=== PATIENT | female | born 1965 ===

== ENCOUNTER 2016-10-06 12:03 | Emergency (ER) | payer OTHER ==
--- NOTE | 2016-10-06 12:40 | ED PDOC ---
Lower Extremity Pain/Injury Time Seen by Provider: 10/06/16 12:33 Chief Complaint (Nursing): Lower Extremity Problem/Injury Chief Complaint (Provider): Left Heel Pain History Per: Patient History/Exam Limitations: no limitations Additional Complaint(s): Patient is a 50 year old female presenting to the ED for left heel pain, present for the past week. The patient denies trauma and reports that the pain worsens upon ambulation. Denies any numbness or tingling. Patient has no other complaints at this time and denies taking any medications for her pain. PCP: none provided. Past Medical History Vital Signs: Last Vital Signs Temp 97 F L 10/06/16 12:17 Pulse 73 10/06/16 12:17 Resp 18 10/06/16 12:17 BP 147/104 H 10/06/16 12:17 Pulse Ox 96 10/06/16 12:17 - Family History Family History: States: Unknown Family Hx - Immunization History Hx Tetanus Toxoid Vaccination: No Hx Influenza Vaccination: No Hx Pneumococcal Vaccination: No - Home Medications Home Medications: Ambulatory Orders Medication Instructions Recorded Naproxen [Naprosyn] 500 mg PO Q12H #20 tab 10/06/16 - Allergies Allergies/Adverse Reactions: Allergies Allergy/AdvReac Type Severity Reaction Status Date / Time No Known Allergies Allergy Verified 10/06/16 12:17 Review of Systems ROS Statement: Except As Marked, All Systems Reviewed And Found Negative Musculoskeletal: Positive for: Foot Pain (Left Heel) Physical Exam - Reviewed Nursing Documentation Reviewed: Yes Vital Signs Reviewed: Yes - Physical Exam Appears: Positive for: Well, Non-toxic, No Acute Distress Skin: Positive for: Normal Color, Warm, Dry Eye Exam: Positive for: EOMI, Normal appearance, PERRL Neck: Positive for: Normal, Supple Extremity: Positive for: Tenderness (Left foot and heel ). Negative for: Pedal Edema, Deformity, Swelling Neurologic/Psych: Positive for: Alert, Oriented - ECG O2 Sat by Pulse Oximetry: 96 (RA) Pulse Ox Interpretation: Normal Medical Decision Making Medical Decision Making: Initial plan: * Left foot XR * Reevaluation Scribe Attestation: Documented by Diana Man training under Sunita Schulz, acting as a scribe for Jody Wyman MD. Provider Attestation: All medical record entries made by the Scribe were at my direction and personally dictated by me. I have reviewed the chart and agree that the record accurately reflects my personal performance of the history, physical exam, medical decision making, and the department course for this patient. I have also personally directed, reviewed, and agree with the discharge instructions and disposition. Disposition - Clinical Impression Clinical Impression: Heel spur - Patient ED Disposition Is Patient to be Admitted: No - Disposition Referrals: Podiatry Clinic [Outside] Disposition: Routine/Home Disposition Time: 14:30 Condition: FAIR Prescriptions: Naproxen [Naprosyn] 500 mg PO Q12H #20 tab Instructions: Heel Spur (ED) Print Language: K[place]
[2016-10-06 12:58] VITALS: BP 147/104; PULSE 73; RESP 18; TEMP 97; O2SAT 96
--- NOTE | 2016-10-06 13:16 | RAD ---
PROCEDURE: Left Foot Radiographs. HISTORY: pain COMPARISON: None available. FINDINGS: BONES: No acute displaced fracture. Small calcaneal enthesophyte. JOINTS: No dislocation. SOFT TISSUES: Soft tissue swelling. No evidence of radiopaque foreign body. OTHER FINDINGS: None. IMPRESSION: Soft tissue swelling. No acute displaced fracture or dislocation identified. If symptoms persist, or if there is continued clinical concern, x-ray follow-up in 7-10 days should be considered.
--- NOTE | 2016-10-06 13:48 | CP.PCM.CON ---
History of Present Illness - History of Present Illness History of Present Illness: This is a 50 yo female patient who present to the ED today with left heel pain. Pt says that she has had the pain for the past week. Denies any trauma or any recent injuries. Rates the pain as a 7/10 and says the pain worsens on ambulation. Says she has tried taking Advil which does help the pain. Denies any other problems at this time. Review of Systems - Review of Systems Review of Systems: as per HPI Past Patient History - Past Social History Smoking Status: Never Smoked - PSYCHIATRIC Hx Substance Use: No - SURGICAL HISTORY Hx Section: Yes - ANESTHESIA Hx Anesthesia: Yes Hx Anesthesia Reactions: No Meds Home Medications: Home Medication List Medication Instructions Recorded Confirmed Type Naproxen [Naprosyn] 500 mg PO Q12H #20 tab 10/06/16 Rx Allergies/Adverse Reactions: Allergies Allergy/AdvReac Type Severity Reaction Status Date / Time No Known Allergies Allergy Verified 10/06/16 12:17 Physical Exam - Constitutional Appears: Non-toxic, No Acute Distress - Extremities Exam Extremities exam: Positive for: calf tenderness Additional comments: Left foot focused exam: VASC- DP/PT pulses palpable, TG runs warm to cool, cft<3 sec to all digits, varicosites present to lateral foot/ankle, no edema noted DERM- no open lesions, no erythema NEURO- pedal sensation is grossly intact ORTHO- tenderness on palp of posterior medial heel, AJ DF is 0 degrees past neutral, pedal muscle strength 5/5 in all directions - Neurological Exam Neurological exam: Alert, CN II-XII Intact, Oriented x3 - Psychiatric Exam Psychiatric exam: Normal Affect, Normal Mood Results - Vital Signs Recent Vital Signs: Last Vital Signs Temp 97 F L 10/06/16 12:17 Pulse 73 10/06/16 12:17 Resp 18 10/06/16 12:17 BP 147/104 H 10/06/16 12:17 Pulse Ox 96 10/06/16 12:52 Assessment & Plan - Assessment and Plan (Free Text) Assessment: 50 yo female w/ plantar fasciits and heel spur left foot Plan: Pt S&E at bedside Plan discussed with attending Dr. Valenzuela Left foot x-ray reviewed: plantar calcaneal heel spur noted, no evidence fx or dislocation Discussed with patient and educated on plantar fasciitis Advised pt to stretch 3x daily, take oral nsaids, RICE therapy KITTY bandage applied and surgical shoe dispensed Pt advised to f/u at [facility] podiatry clinic
== END 2016-10-06 14:46 | disposition home or self-care (01) ==
LOC: H.ER 12:03
DX: M77.32 Calcaneal spur, left foot (principal)

== ENCOUNTER 2017-09-22 15:26 | Emergency (ER) | payer OTHER ==
[2017-09-22 15:26] VITALS: BMI 40.4
[2017-09-22 15:36] VITALS: TEMP 98.7
[2017-09-22] MEDS ORDERED: Sodium Chloride 0.9% 1,000 ML IV STA (15:40)
--- NOTE | 2017-09-22 15:52 | ED PDOC ---
HPI: General Adult Time Seen by Provider: 09/22/17 15:38 Chief Complaint (Nursing): Palpitations Chief Complaint (Provider): Palpitations History Per: Patient History/Exam Limitations: no limitations Onset/Duration Of Symptoms: Days Additional Complaint(s): Pt. with palpitations that started yesterday. Is off and on since yesterday. Comes and goes sporadically. No chest pain, dyspnea, weakness, headaches, dizziness. No abd pain, nausea, vomit, diarrhea. No cough. No leg pain, long distance travel, or hormone tx. Past Medical History Reviewed: Nursing Documentation, Vital Signs Vital Signs: Last Vital Signs Temp 98.7 F 09/22/17 15:32 Pulse 68 09/22/17 15:32 Resp 18 09/22/17 15:32 BP 145/93 H 09/22/17 15:32 Pulse Ox 99 09/22/17 16:01 - Medical History PMH: No Chronic Diseases - Surgical History Surgical History: No Surg Hx - Family History Family History: States: Unknown Family Hx - Social History Alcohol: None Drugs: Denies - Immunization History Hx Tetanus Toxoid Vaccination: No Hx Influenza Vaccination: No Hx Pneumococcal Vaccination: No - Home Medications Home Medications: Ambulatory Orders Medication Instructions Recorded Naproxen [Naprosyn] 500 mg PO Q12H #20 tab 10/06/16 - Allergies Allergies/Adverse Reactions: Allergies Allergy/AdvReac Type Severity Reaction Status Date / Time No Known Allergies Allergy Verified 10/06/16 12:17 Review of Systems ROS Statement: Except As Marked, All Systems Reviewed And Found Negative Cardiovascular: Positive for: Palpitations Physical Exam - Reviewed Nursing Documentation Reviewed: Yes Vital Signs Reviewed: Yes - Physical Exam Appears: Positive for: Non-toxic, No Acute Distress Head Exam: Positive for: ATRAUMATIC, NORMAL INSPECTION, NORMOCEPHALIC Skin: Positive for: Normal Color, Warm, DRY Eye Exam: Positive for: EOMI, Normal appearance, PERRL ENT: Positive for: Normal ENT Inspection Neck: Positive for: Normal, Painless ROM Cardiovascular/Chest: Positive for: Regular Rate, Rhythm Respiratory: Positive for: CNT, Normal Breath Sounds Gastrointestinal/Abdominal: Positive for: Normal Exam, Soft. Negative for: Tenderness Back: Positive for: Normal Inspection Extremity: Positive for: Normal ROM. Negative for: Tenderness, Pedal Edema Neurologic/Psych: Positive for: Alert, Oriented - Laboratory Results Result Diagrams: 09/22/17 16:04 09/22/17 16:04 Interpretation Of Abn Labs: no acute - ECG ECG: Positive for: Interpreted By Me, Viewed By Me ECG Rhythm: Positive for: Normal QRS, Normal ST Segment, Sinus Rhythm O2 Sat by Pulse Oximetry: 99 Pulse Ox Interpretation: Normal - Progress ED Course And Treament: 1717: Stable. No symptoms while in the Er. AAOx3. Pain free. Tolerated PO. Fu with pcp. Disposition - Clinical Impression Clinical Impression: Palpitations - Patient ED Disposition Is Patient to be Admitted: No Counseled Patient/Family Regarding: Studies Performed, Diagnosis - Disposition Referrals: [facility] [Outside] - 09/23/17 Disposition: Routine/Home Disposition Time: 17:18 Condition: STABLE Instructions: Palpitations Print Language: MALTESE
[2017-09-22 16:09] LABS: BASO # 0.1 K/uL (0.0-0.2); BASO % 1.3 % (0.0-2.0); EOS # 0.2 K/uL (0.0-0.7); EOS % 3.7 % (0.0-4.0); HEMOGLOBIN 12.4 g/dL (12.0-16.0); LYMPH # 1.7 K/uL (1.0-4.3); LYMPH % 31.5 % (20.0-40.0); MEAN CELL VOLUME 81.6 fl (81.0-99.0); MEAN CORPUSCULAR HEMOGLOBIN 26.6 pg (27.0-31.0); MEAN CORPUSCULAR HGB CONC 32.6 g/dL (33.0-37.0); MEAN PLATELET VOLUME 10.1 fl (7.2-11.7); MONO # 0.5 K/uL (0.0-0.8); NEUT # 2.9 K/uL (1.8-7.0); NEUT % 53.5 % (50.0-75.0); NRBC % 0.1 % (0.0-0.0); RBC 4.67 Mil/uL (3.80-5.20); RED CELL DISTRIBUTION WIDTH 14.7 % (11.5-14.5); WHITE BLOOD COUNT 5.4 K/uL (4.8-10.8)
[2017-09-22 16:24] LABS: ALB/GLOB RATIO 1.2 (1.0-2.1); ALBUMIN 4.1 g/dL (3.5-5.0); ALT/SGPT 39 U/L (9-52); AST/SGOT 37 U/L (14-36); BLOOD UREA NITROGEN 11 mg/dl (7-17); CALCIUM 9.1 mg/dL (8.4-10.2); GFR AFRICAN-AMERICAN > 60; GFR NON-AFRICAN AMERICAN > 60
[2017-09-22 17:44] VITALS: BP 137/80; PULSE 78; RESP 16; O2SAT 98
--- NOTE | 2017-09-23 15:28 | CARD ---
APPROVED REPORT EKG Measurement Heart [id number] <Conclusion> Normal sinus rhythm Normal ECG
== END 2017-09-22 17:44 | disposition home or self-care (01) ==
LOC: H.ER 15:26
DX: R00.2 Palpitations (principal)
CPT/HCPCS: 80053; 83735; 84100; 84484; 85025; 93005; 99283; J7030